=== PATIENT | female | born 1960 | race Caucasian/White ===

== ENCOUNTER 2017-08-01 09:40 | Day surgery (SDC) | payer BC ==
[2017-08-01 11:36] VITALS: BMI 29.8
[2017-08-01] MEDS ORDERED: Propofol 10 mg/ml Inj (20 ML) ONE ×2 (11:37→11:45)
[2017-08-01] MEDS ORDERED: Lidocaine Hydrochloride 5 ML INJ ONE (11:44)
[2017-08-01] MEDS ORDERED: Simethicone 40 mg/0.6 ml Liquid (30 ml) ONE (11:49)
[2017-08-01 12:24] VITALS: TEMP 97.8; O2SAT 100
[2017-08-01 13:16] VITALS: BP 130/75; PULSE 59; RESP 14
== END 2017-08-01 13:14 | disposition home or self-care (01) ==
LOC: C.ENDO 09:40
PROVIDERS: ATTEND Internal Medicine Gastroenterology
DX: K31.7 Polyp of stomach and duodenum (principal); K44.9 Diaphragmatic hernia without obstruction or gangrene; B96.81 Helicobacter pylori [H. pylori] as the cause of diseases classified elsewhere; K64.8 Other hemorrhoids; K57.90 Diverticulosis of intestine, part unspecified, without perforation or abscess without bleeding
CPT/HCPCS: 43251; 45378; 88305; 88342; J2704